=== PATIENT | female | born 1945 | race Caucasian/White ===

== ENCOUNTER 2017-11-05 09:47 | Day surgery (SDC) | payer MEDICARE, BC ==
[~2017-11-05] VITALS: Ht 167.6 cm; Wt 71.7 kg
[~2017-11-05 09:47] MED LIST: ASCO500 PO; ASPI81CH PO; BUDE6HFA; CALCAVITD PO; CLARITIN10 MG PO; CLON.1 PO; FEXPSEER PO; Flovent Diskus50 MCG IH; Hair, Skin & N1 EACH PO; INSUASPI SC; INSULANPEN; LOSHYD100 PO; METF500C PO; MONT10T PO; Mobic15 MG PO; SYNTHROID25 MCG PO; Simvastatin20 MG PO
== END 2017-11-05 12:40 | disposition home or self-care (01) ==
LOC: ORSCSDS 09:47
PROVIDERS: Ophthalmology
PROC: 080NXZZ Alteration of Right Upper Eyelid, External Approach (ICD-10-PCS; principal; 2017-11-05 11:15)
PROC: 080PXZZ Alteration of Left Upper Eyelid, External Approach (ICD-10-PCS; principal; 2017-11-05 11:15)
DX: H02.834 Dermatochalasis of left upper eyelid (principal); H02.831 Dermatochalasis of right upper eyelid; I10 Essential (primary) hypertension; J45.909 Unspecified asthma, uncomplicated; E11.9 Type 2 diabetes mellitus without complications; Z87.891 Personal history of nicotine dependence; E03.9 Hypothyroidism, unspecified; Z79.4 Long term (current) use of insulin; Z79.899 Other long term (current) drug therapy; Z79.82 Long term (current) use of aspirin
CPT/HCPCS: 82947; J2250; J3010

== ENCOUNTER → 2019-11-29 | Outpatient (CLI) | payer MEDICARE, BC ==
[2019-11-29 11:15] LABS: Creatinine, Urine Random 43.2 mg/dL (27.00-270.00)
[2019-11-29 11:18] LABS: Microalb/Creat Ratio UR, Rand 472.222 mg/g (0.000-30.000)
== END | disposition home or self-care (01) ==
LOC: LAB SHORT 08:10 → LAB 08:10 → LAB FUT 08-30 08:00
PROVIDERS: Physician Assistant
DX: E03.9 Hypothyroidism, unspecified (principal); N18.9 Chronic kidney disease, unspecified
CPT/HCPCS: 82043; 82570

== ENCOUNTER → 2023-11-18 | Outpatient (CLI) | payer MEDICARE, BC ==
[2023-11-18 16:50] LABS: Creatinine, Urine Random 29.8 mg/dL (27.00-270.00); Microalb/Creat Ratio UR, Rand 684.564 mg/g (0.000-30.000)
== END | disposition home or self-care (01) ==
LOC: LAB 09:30 → LAB SHORT 09:30
PROVIDERS: Internal Medicine Endocrinology, Diabetes & Metabolism
DX: E10.29 Type 1 diabetes mellitus with other diabetic kidney complication (principal)
CPT/HCPCS: 82043; 82570